=== PATIENT | male | born 1950 | race Caucasian/White ===

== ENCOUNTER 2017-05-26 21:34 | Inpatient (IN) ==
[2017-05-26] MEDS ORDERED: NITROGLYCERIN 2% OINT 1 INCH/GM PACK TOP STA (22:19)
[2017-05-26] MEDS ORDERED: ASPIRIN 325 MG TABLET PO STA (22:19)
[2017-05-26] MEDS ORDERED: ALUM/MAG/SIMETH/LIDO VISC 1:1 30 ML BOTTLE PO STA (22:19)
[2017-05-26] MEDS ORDERED: METOPROLOL TARTRATE 25 MG TABLET PO STA (22:19)
[2017-05-26] MEDS ORDERED: MORPHINE 2 MG/1 ML SYRINGE IV STA (22:19)
[2017-05-26] MEDS ORDERED: ONDANSETRON 4 MG/2 ML VIAL IV STA (22:19)
[2017-05-26 22:26] LABS: Basophils # 0.1 10*3/uL (0.0-0.2); Basophils % 0.6 % (0.0-0.8); Eosinophils # 0.3 10*3/uL (0.0-0.87); Eosinophils % 2.6 % (0.00-10.9); Hematocrit 40.2 VOL% (42.0-52.0); Immature Granulocytes % 0.3 %; Immature Granulocytes Absolute 0.03 #; Lymphocytes # 4.8 10*3/uL (1.4-4.0); Lymphocytes % 40.6 % (21.2-54.2); Mean Corpuscular HGB Conc 34.8 GM/DL (32-36); Mean Corpuscular Hemoglobin 31 PG (27-34); Mean Corpuscular Volume 88.5 FL (87-102); Mean Platelet Volume 9.7 FL (9.6-12.0); Monocytes # 0.8 10*3/uL (0.11-0.8); Monocytes % 6.4 % (1.7-12.7); Neutrophils # 5.8 10*3/uL (1.4-7.4); Neutrophils % 49.5 % (38.7-73.9); Platelet Count 243 T/CUMM (130-400); Red Blood Count 4.54 MC/CUMM (3.8-5.5); Red Cell Distribution Width 13.6 % (9.3-17.3); White Blood Count 11.7 T/CUMM (4-12)
[2017-05-26] MEDS ORDERED: NITROGLYCERIN 2% OINT 1 INCH/GM PACK TOP ONE (22:31)
[2017-05-26] MEDS ORDERED: METOPROLOL TARTRATE 25 MG TABLET ONE (22:31)
[2017-05-26] MEDS ORDERED: ALUM/MAG/SIMETH/LIDO VISC 1:1 30 ML BOTTLE PO ONE (22:31)
[2017-05-26] MEDS ORDERED: ASPIRIN 325 MG TABLET ONE (22:31)
[2017-05-26] MEDS ORDERED: MORPHINE 2 MG/1 ML SYRINGE ONE (22:31)
[2017-05-26] MEDS ORDERED: ONDANSETRON 4 MG/2 ML VIAL ONE (22:31)
[2017-05-26 22:39] LABS: INR 0.9
[2017-05-26 22:40] LABS: Albumin 3.8 G/DL (3.4-5.0); Bilirubin,Total 0.8 MG/DL (0.2-1.0); Magnesium 2.1 MG/DL (1.8-2.4); Osmolality,Calculated 275.7 MOS/KG (273-304); Potassium 3.8 MMOL/L (3.5-5.1); Total Protein 7.4 G/DL (6.4-8.3)
[2017-05-26] MEDS ORDERED: ENOXAPARIN 100 MG/ML SYRINGE SUBCUT STA (23:20)
[2017-05-26 23:23] LABS: Apearance,Urine CLOUDY (Clear); Bacteria,Urine Few /HPF (Few); Bilirubin,Urine Negative (Negative); Blood, Urine Moderate mg/dL (Negative); Glucose,Urine (UA) Negative (Negative); Ketones,Urine Negative (Negative); Nitrite,Urine Negative (Negative); Protein,Urine 30 MG/DL; RBC,Urine 83 /HPF (0-4); Urine Color Yellow (Yellow); Urine Specific Gravity 1.016 (1.001-1.035); WBC,Urine 7 /HPF (0-6)
[2017-05-26 23:34] LABS: Barbiturates Screen,Urine Negative (Negative); Benzodiazepines Screen,Urine Negative (Negative); Cannabinoid Screen,Urine Negative (Negative); Opiate Screen,Urine Negative (Negative); Phencyclidine Screen,Urine Negative (Negative)
[2017-05-27] MEDS ORDERED: ENOXAPARIN 80 MG/0.8 ML SYRINGE SUBCUT ONE (00:04)
[2017-05-27] MEDS ORDERED: SIMETHICONE CHEW 125 MG TABLET PO PRN (01:43)
[2017-05-27] MEDS ORDERED: NICOTINE 21 MG/24 HR PATCH TRANSDERM PRN (01:43)
[2017-05-27] MEDS ORDERED: ONDANSETRON 4 MG/2 ML VIAL IV PRN (01:43)
[2017-05-27] MEDS ORDERED: SODIUM CHLORIDE 0.9% 1,000 ML IV SCH (01:43)
[2017-05-27] MEDS ORDERED: MORPHINE 2 MG/1 ML SYRINGE IV PRN (01:43)
[2017-05-27] MEDS ORDERED: ZALEPLON 5 MG CAPSULE PO PRN (01:43)
[2017-05-27 02:19] LABS: Risk Ratio 2.95; Thyroid Stimulating Hormone 1.07 uIU/ml (0.358-3.74); VLDL CHOLESTEROL 13.4 MG/DL
[2017-05-27] MEDS ORDERED: ENOXAPARIN 40 MG/0.4 ML SYRINGE SUBCUT SCH (09:00)
[2017-05-27] MEDS ORDERED: PANTOPRAZOLE 40 MG TABLET PO SCH (09:00)
[2017-05-27] MEDS ORDERED: DOCUSATE SODIUM 100 MG CAPSULE PO SCH (09:00)
[2017-05-27 16:07] VITALS: BP 100/62
[2017-05-27] MEDS ORDERED: ASPIRIN EC 81 MG TABLET PO SCH (18:00)
[2017-05-27] MEDS ORDERED: FINASTERIDE 5 MG TABLET PO SCH (18:00)
== END 2017-05-27 18:11 | disposition home or self-care (01) | DRG 313 ==
LOC: N.ED 21:34 → N.EDINP 05-27 00:29 → N.TELEN 05-27 01:05
PROVIDERS: ADMIT Internal Medicine; ATTEND Internal Medicine